=== PATIENT | female | born 1965 | race Caucasian/White ===

== ENCOUNTER → 2017-10-27 13:30 | Outpatient (CLI) | payer OTHER, SELFPAY ==
--- NOTE | 2017-10-27 13:35 | RAD_ITS ---
STUDY: X-RAY - UNILATERAL RIBS ( LEFT ) REASON FOR EXAM: Female, 52 years old. Left posterior rib pain following a fall. TECHNIQUE: 4 view(s) of the ribs. COMPARISON: None. FINDINGS: Normal visualized ribs without a demonstrated fracture. The visualized lung is clear and expanded. RAD/Ribs Uni Min 3V w/PA Chest IMPRESSION: Normal x-ray examination of the ribs. Electronically Signed: Juan Jose Ventura MD at 13:59 EST Tel [phone], Service support ,
--- NOTE | 2017-10-27 13:40 | RAD_ITS ---
STUDY: X-RAY CHEST REASON FOR EXAM: Female, 52 years old. Left posterior and pleuritic chest pain following a prior injury. TECHNIQUE: PA and lateral views of the chest. COMPARISON: None. FINDINGS: Hyperinflation. The lungs are clear. There is no demonstrated pleural abnormality. Normal size heart. Normal mediastinum and fadi. Normal visualized pulmonary arteries. Normal visualized aortic arch and descending thoracic aorta. Normal visualized thoracic spine. Normal visualized ribs, clavicles, and shoulders. There is no demonstrated abnormality of the visualized soft tissue structures of the upper abdomen. RAD/Chest PA and Lateral IMPRESSION: Normal x-ray examination of the chest. Electronically Signed: Juan Jose Ventura MD at 13:59 EST Tel [phone], Service support ,
== END ==
PROVIDERS: Family Provider Family Medicine; PCP Family Medicine; Visit Provider Family Medicine
DX: R07.1 Chest pain on breathing (principal); S20.212A Contusion of left front wall of thorax, initial encounter; X58.XXXA Exposure to other specified factors, initial encounter; Y93.9 Activity, unspecified; Y92.9 Unspecified place or not applicable; Y99.9 Unspecified external cause status
CPT/HCPCS: 71046; 71101

== ENCOUNTER → 2018-01-22 11:39 | Outpatient (CLI) | payer OTHER, SELFPAY ==
[2018-01-22 13:08] LABS: AST(SGOT) 16 U/L (15-37); Alanine Aminotransfer ALT/SGPT 18 U/L (13-56); Albumin, Serum 3.7 g/dL (3.2-5.0); Alkaline Phosphatase 66 U/L (45-117); Bilirubin, Direct 0.07 mg/dL (0.00-0.30); Globulin 3.7 g/dL (2.2-4.2); Lipase 174 U/L (73-393); Protein, Total 7.4 g/dL (6.4-8.2)
== END ==
PROVIDERS: Family Provider Family Medicine; PCP Family Medicine; Visit Provider Family Medicine
DX: R10.9 Unspecified abdominal pain (principal)
CPT/HCPCS: 36415; 80076; 83690

== ENCOUNTER → 2018-01-30 07:44 | Outpatient (CLI) | payer OTHER, SELFPAY ==
--- NOTE | 2018-01-30 07:46 | US_ITS ---
STUDY: ABDOMINAL ULTRASOUND REASON FOR EXAM: Female, 52 years old. Abdominal fullness. Chronic abdominal pain. TECHNIQUE: Transabdominal ultrasound was performed with real-time and static loving scale imaging. TECHNICAL QUALITY: Adequate. COMPARISON: None. FINDINGS: Liver: The liver measures 11.7 cm. There is normal echogenicity of the liver. The bile ducts are within normal limits. There is hepatic color flow. The direction of portal flow is hepatopetal. There is no demonstrated mass lesion. Portal vein measurement: Gallbladder: Normal distended gallbladder. The gallbladder wall measures 1.5 mm. There is a negative sonographic Waddell's sign. There is no pericholecystic fluid. There are no gallstones. Common Bile Duct (C.B.D.): The common bile duct measures 1.4 mm. Pancreas: Normal size of the head, body and tail of the pancreas. There is normal echogenicity of the pancreas. There is no demonstrated pancreatic mass or cyst. Spleen: Spleen is incompletely visualized due to bowel gas high position below the diaphragm. Right Kidney: Normal size of the right kidney. The right kidney measures 9.4 cm. Normal renal cortex. The right cortex measures 1.2 cm. There is no demonstrated renal mass or cyst. There is no right hydronephrosis. Left Kidney: Normal size of the left kidney. The left kidney measures 9.4 cm. Normal renal cortex. The left cortex measures 1.2 cm. There is no demonstrated renal mass or cyst. There is no left hydronephrosis. Aorta: Abdominal aorta was not imaged. I.V.C.: The IVC is patent. There is no ascites. US/Gallbladder IMPRESSION: 1. Limited visualization of the spleen. 2. Otherwise normal abdominal ultrasound. Electronically Signed: Daniel Marcelo DO at 18:50 EDT Tel [phone], Service support ,
--- NOTE | 2018-01-30 07:47 | US_ITS ---
STUDY: ABDOMINAL ULTRASOUND REASON FOR EXAM: Female, 52 years old. Abdominal fullness. Chronic abdominal pain. TECHNIQUE: Transabdominal ultrasound was performed with real-time and static loving scale imaging. TECHNICAL QUALITY: Adequate. COMPARISON: None. FINDINGS: Liver: The liver measures 11.7 cm. There is normal echogenicity of the liver. The bile ducts are within normal limits. There is hepatic color flow. The direction of portal flow is hepatopetal. There is no demonstrated mass lesion. Portal vein measurement: Gallbladder: Normal distended gallbladder. The gallbladder wall measures 1.5 mm. There is a negative sonographic Waddell's sign. There is no pericholecystic fluid. There are no gallstones. Common Bile Duct (C.B.D.): The common bile duct measures 1.4 mm. Pancreas: Normal size of the head, body and tail of the pancreas. There is normal echogenicity of the pancreas. There is no demonstrated pancreatic mass or cyst. Spleen: Spleen is incompletely visualized due to bowel gas high position below the diaphragm. Right Kidney: Normal size of the right kidney. The right kidney measures 9.4 cm. Normal renal cortex. The right cortex measures 1.2 cm. There is no demonstrated renal mass or cyst. There is no right hydronephrosis. Left Kidney: Normal size of the left kidney. The left kidney measures 9.4 cm. Normal renal cortex. The left cortex measures 1.2 cm. There is no demonstrated renal mass or cyst. There is no left hydronephrosis. Aorta: Abdominal aorta was not imaged. I.V.C.: The IVC is patent. There is no ascites. US/Abdomen Limited IMPRESSION: 1. Limited visualization of the spleen. 2. Otherwise normal abdominal ultrasound. Electronically Signed: Daniel Marcelo DO at 18:50 EDT Tel [phone], Service support ,
== END ==
PROVIDERS: Family Provider Family Medicine; PCP Family Medicine; Visit Provider Family Medicine
DX: R10.12 Left upper quadrant pain (principal); G89.29 Other chronic pain
CPT/HCPCS: 76705

== ENCOUNTER → 2018-06-27 07:43 | Outpatient (CLI) | payer OTHER, SELFPAY ==
[2018-06-27 10:58] LABS: Cholesterol 184 mg/dL (200); Glucose 88 mg/dL (74-106); High Density Lipoprotein 64 mg/dL; Triglycerides 69 mg/dL; Very Low Density Lipoprotein 14 mg/dL (5-40)
== END ==
PROVIDERS: Family Provider Family Medicine; PCP Family Medicine; Referring Provider Family Medicine; Visit Provider Family Medicine
DX: E11.9 Type 2 diabetes mellitus without complications (principal); Z13.220 Encounter for screening for lipoid disorders
CPT/HCPCS: 36415; 80061; 82947

== ENCOUNTER → 2018-09-07 15:39 | Outpatient (CLI) | payer OTHER, SELFPAY ==
--- NOTE | 2018-09-07 15:44 | RAD_ITS ---
HISTORY: NO KNOWN INJURY. PAIN IN LOWER BACK RADIATING DOWN INTO RIGHT HIP AND LEG. COMPARISON: None FINDINGS: XR Spine Lumbar 5 views Generalized bony demineralization. Lumbar vertebra show normal height and alignment. No fracture or acute disease. Lumbar disc space heights are preserved. The posterior elements appear intact. No spondylolisthesis. SI joints are preserved. RAD/L/S Spine Min 4 Views IMPRESSION: 1. Osteopenia. Otherwise negative exam. No fracture or acute disease. 2. As correlated with the history of lumbar radiculopathy, consider MR correlation. at 0357 Reported and signed by: Bret Ly MD Electronically Signed: Bret Ly, at 3:56 EST Tel , Service support ,
== END ==
PROVIDERS: Family Provider Family Medicine; PCP Family Medicine; Referring Provider Family Medicine; Visit Provider Family Medicine
DX: M54.31 Sciatica, right side (principal)
CPT/HCPCS: 72110

== ENCOUNTER 2019-04-05 16:07 | Emergency (ER) | payer OTHER, SELFPAY ==
[2019-04-05 16:08] VITALS: BP 142/69; PULSE 90; RESP 15; TEMP 37.2; O2SAT 95; BMI 22.2
--- NOTE | 2019-04-05 16:15 | EKG12_ITS ---
Test Reason : Blood Pressure : / mmHG Vent. Rate : 082 BPM Atrial Rate : 082 BPM P-R Int : 148 ms QRS Dur : 072 ms QT Int : 384 ms P-R-T Axes : 075 057 053 degrees QTc Int : 448 ms Normal sinus rhythm Normal ECG Confirmed by JANET CHILDS, TOYA ([id number]), news copy editor LENORA BRANTLEY ([id number]) on 04/08/2019 1:52:26 PM Referred By: MARISOL Confirmed By:MARCOS GONZALES MD
--- NOTE | 2019-04-05 16:16 | ED.DCSUM_ITS ---
- ER Visit Summary Date of Service: 04/05/19 Chief Complaint: Questionable allergic reaction History of Present Illness: The patient is a 53 F who possibly had an allergic reaction. She was at work and her feet and hands were itchy. Coworkers noticed a rash on her neck. She then had a syncopal episode. She has had syncope previously. Denies any chest pain, shortness of breath or tongue swelling. She took 2 Claritin and is feeling better. Denies any headache. No fevers or any other recent illnesses. She had a ham and cheese sandwich from [employer] today but has had this before. No other new irritants noted. Physical Examination: Vital signs reviewed. HEENT exam unremarkable. Heart is regular rate and rhythm without murmurs. Lungs are clear to auscultation. Abdomen is soft and nontender. Extremities reveal no edema. Skin exam normal. Neurologic exam normal. Test Results: Laboratory studies are unremarkable except for potassium 3.3 Emergency Department Course and Treatment: The patient was given IV fluids and feels much better. It is unclear what caused her allergic reaction. It could have been something from the sandwich that she ate. She will avoid that from now on. She would do Benadryl at home. She would like to go home. She will follow-up with her PCP Treatment Plan: [] Disposition: Discharge Impression: Syncope, allergic reaction This note was generated with [employer]ation software. It may contain incorrect words, spelling, and punctuation that were not noted in review of the chart prior to signing ED Disposition - Plan for ED Patient: Referrals: Kyree Herron MD [Primary Care Provider] -
[2019-04-05 16:38] LABS: Absolute Lymphocyte Count 1.68 X10^3/uL (0.83-4.51); Absolute Neutrophil Count 2.3 X10^3/uL (2.0-7.7); Eosinophil# 0.04 X10^3/uL; Eosinophils% 0.9 % (0-5); Hemoglobin 12.2 g/dL (12.0-15.0); Lymphocyte # 1.68 X10^3/ul (4.0); Lymphocyte % 36.2 % (19-41); Mean Corpuscular Hgb 29.6 pg (27.0-32.0); Mean Corpuscular Volume 89.8 fL (81-99); Mean Platelet Vol. 8.6 fl (6.2-12.0); Monocyte# 0.64 X10^3/uL; Monocyte% 13.8 % (0-10); NRBC Flagged by Analyzer 0 % (0-5); Neutrophil # 2.27 X10^3/uL (2.7-7.7); Neutrophil % 48.9 % (47-70); Platelet Count 272 K/mm3 (150-450); RBC Distribution Width CV 12.9 % (11.6-14.6); RBC Distribution Width SD 42.8 fl (35.1-43.9); Red Blood Count 4.12 M/mm3 (4.2-5.4); White Blood Count 4.6 K/mm3 (4.4-11.0)
[2019-04-05 16:53] LABS: Anion Gap 3 (5-15); BUN 18 mg/dL (7-18); BUN/Creat Ratio 17.3 RATIO (10-20); Calcium,Total 8.8 mg/dL (8.5-10.1); Chloride 106 mmol/L (98-107); Creatinine, Serum 1.04 mg/dL (0.55-1.02); EST Glomerular Filtration Rate 59 mL/min (>60); Est Glom Filt Rate - Afr Amer 71 mL/min (>60); Estimated Creatinine Clearance 44.42 ml/min; Glucose 104 mg/dL (74-106); Potassium 3.3 mmol/L (3.5-5.1); Sodium Level 138 mmol/L (136-145)
--- NOTE | 2019-04-05 17:28 | ED.DEP ---
ED Disposition - Plan for ED Patient: Disposition: Home or Assisted Living Instructions: ALLERGIC REACTION, Other (General) Referrals: Kyree Herron MD [Primary Care Provider] -
[2019-04-05 17:36] VITALS: BP 104/66; PULSE 20; RESP 17; O2SAT 94
== END 2019-04-05 17:39 | disposition home or self-care (01) ==
PROVIDERS: Emergency Provider Emergency Medicine; Family Provider Family Medicine; PCP Family Medicine
DX: T78.40XA Allergy, unspecified, initial encounter (principal); X58.XXXA Exposure to other specified factors, initial encounter; R55 Syncope and collapse; Z79.899 Other long term (current) drug therapy
CPT/HCPCS: 80048; 85025; 93005; 99285; A4216

== ENCOUNTER → 2019-10-14 17:28 | Outpatient (CLI) | payer OTHER, SELFPAY ==
[2019-10-14 17:58] LABS: Absolute Lymphocyte Count 1.93 X10^3/uL (0.83-4.51); Absolute Neutrophil Count 1.9 X10^3/uL (2.0-7.7); Eosinophil# 0.09 X10^3/uL; Eosinophils% 1.9 % (0-5); Hematocrit 35.3 % (37-47); Hemoglobin 11.2 g/dL (12.0-15.0); Lymphocyte # 1.93 X10^3/ul (4.0); Lymphocyte % 40.9 % (19-41); Mean Corp Hgb Conc 31.7 g/dL (32-36); Mean Corpuscular Hgb 28.8 pg (27.0-32.0); Mean Corpuscular Volume 90.7 fL (81-99); Mean Platelet Vol. 9.6 fl (6.2-12.0); Monocyte# 0.76 X10^3/uL; Monocyte% 16.1 % (0-10); NRBC Flagged by Analyzer 0 % (0-5); Neutrophil # 1.94 X10^3/uL (2.7-7.7); Neutrophil % 41.1 % (47-70); Platelet Count 341 K/mm3 (150-450); RBC Distribution Width SD 46.2 fl (35.1-43.9); Red Blood Count 3.89 M/mm3 (4.2-5.4); White Blood Count 4.7 K/mm3 (4.4-11.0)
[2019-10-14 18:05] LABS: Erythrocyte Sedimentation Rate 31 mm/hr (0-30)
[2019-10-14 18:28] LABS: AST(SGOT) 21 U/L (15-37); Alanine Aminotransfer ALT/SGPT 32 U/L (13-56); Albumin, Serum 3.8 g/dL (3.2-5.0); Alkaline Phosphatase 75 U/L (45-117); Anion Gap 5 (5-15); BUN 23 mg/dL (7-18); BUN/Creat Ratio 20.4 RATIO (10-20); CPK Total, Creatine Kinase 69 U/L (26-192); CRP < 2.90 mg/L (0.0-3.0); Calcium,Total 8.7 mg/dL (8.5-10.1); Chloride 107 mmol/L (98-107); Creatinine, Serum 1.13 mg/dL (0.55-1.02); EST Glomerular Filtration Rate 53 mL/min (>60); Est Glom Filt Rate - Afr Amer 64 mL/min (>60); Globulin 3.7 g/dL (2.2-4.2); Glucose 97 mg/dL (74-106); Potassium 3.4 mmol/L (3.5-5.1); Protein, Total 7.5 g/dL (6.4-8.2); Rheumatoid Factor < 10.0 IU/mL (<15); Sodium Level 141 mmol/L (136-145); T4 Free Direct 0.88 ng/dL (0.76-1.46)
[2019-10-14 18:38] LABS: Vitamin D,25 Hydroxy 18.8 ng/mL (29.95-100.01)
[2019-10-17 12:58] LABS: Ferritin 18 ng/mL (8-252); Iron 68 ug/dL (50-170)
[2019-10-17 16:03] LABS: CCP IgG Antibodies 9 units (0-19)
== END ==
PROVIDERS: PCP Family Medicine; Referring Provider Family Medicine; Visit Provider Family Medicine
DX: M06.4 Inflammatory polyarthropathy (principal); M60.9 Myositis, unspecified; D64.9 Anemia, unspecified; R55 Syncope and collapse; R53.83 Other fatigue; M62.81 Muscle weakness (generalized)
CPT/HCPCS: 36415; 80053; 82306; 82550; 82728; 83540; 84439; 84443; 85025; 85652; 86038; 86140; 86200; 86431

== ENCOUNTER → 2019-10-22 17:19 | Outpatient (CLI) | payer OTHER, SELFPAY ==
[2019-10-22 14:58] VITALS: BMI 22.2
[2019-10-25 11:18] LABS: HPV APTIMA, High Risk Negative (Negative)
== END ==
PROVIDERS: PCP Family Medicine; Referring Provider Obstetrics & Gynecology; Visit Provider Obstetrics & Gynecology
DX: Z12.4 Encounter for screening for malignant neoplasm of cervix (principal)
CPT/HCPCS: 87624; 88175; G0145

== ENCOUNTER 2021-09-22 12:29 | Outpatient (CLI) | payer OTHER, SELFPAY ==
--- NOTE | 2021-09-22 11:40 | RAD_ITS ---
STUDY: X-RAY CHEST REASON FOR EXAM: Female, 56 years old. Dyspnea on exertion. TECHNIQUE: AP and lateral views of the chest. COMPARISON: 10/27/2017. FINDINGS: The lungs are clear and expanded. There is no demonstrated pleural abnormality. Normal size heart. Normal mediastinum and fadi. Normal visualized pulmonary arteries. Normal visualized aortic arch and descending thoracic aorta. Normal visualized thoracic spine. Normal visualized ribs, clavicles, and shoulders. There is no demonstrated abnormality of the visualized soft tissue structures of the upper abdomen. RAD/Chest PA and Lateral IMPRESSION: No interval change. Normal chest. Electronically Signed: Luisito Leung MD at 9:13 EST , Service support ,
--- NOTE | 2021-09-22 12:33 | ECHOD_ITS ---
Reason For Study: Dyspnea on Exertion Procedure This was a 2D Doppler, Color Flow transthoracic echocardiogram. Exam performed in department. Left Ventricle Normal LV size. Left ventricular systolic function is normal. The estimated ejection fraction is 65 %. No evidence for diastolic dysfunction. No regional wall motion abnormalities noted. Right Ventricle Normal RV size. Normal systolic function. Atria Normal left atrium. Normal right atrium. No doppler evidence for ASD. Mitral Valve There is no mitral annular calcification. Normal mitral valve. Mild-Moderate (1-2+) mitral valve insufficiency. Tricuspid Valve Normal tricuspid valve. Mild tricuspid valve insufficiency. Right ventricular systolic pressure estimated to be 23 mmHg. Aortic Valve Trisinus/trileaflet aortic valve. Normal aortic valve. Pulmonic Valve The pulmonic valve is not well visualized. Great Vessels Normal sized aortic root. Pericardium/Pleural No pericardial effusion. MMode/2D Measurements & Calculations LVIDd: 3.7 cm IVSd: 0.71 cm Ao root diam: 2.7 cm LVIDs: 1.8 cm LVPWd: 0.69 cm LA dimension: 3.0 cm FS: 52.3 % LAV(MOD-bp): 32.1 ml LA A4 area: 12.5 cm2 RA A4 area: 8.5 cm2 LAV(MOD-bp) Indexed: 21.8 ml/m2 LAV(MOD-sp2): 30.4 ml LAV(MOD-sp4): 30.3 ml Time Measurements MV dec time: 0.15 sec Doppler Measurements & Calculations MV E max julio c: 116.5 cm/sec Lat Peak E' Julio C: 12.1 cm/sec Med Peak E' Julio C: 11.1 cm/sec MV A max julio c: 103.5 cm/sec E/E' lat: 9.7 E/E' med: 10.5 MV E/A: 1.1 MV V2 max: 136.8 cm/sec MV P1/2t max julio c: 137.7 cm/sec Ao V2 max: 138.0 cm/sec MV max P.5 mmHg MV P1/2t: 61.9 msec Ao max P.6 mmHg MV V2 mean: 77.6 cm/sec MV dec slope: 651.8 cm/sec2 MV mean P.8 mmHg MVA(P1/2t): 3.6 cm2 MV V2 VTI: 31.3 cm LV V1 max: 86.8 cm/sec MR max julio c: 572.6 cm/sec PA V2 max: 102.1 cm/sec LV V1 max P.0 mmHg MR max P.1 mmHg MR mean julio c: 434.4 cm/sec MR mean P.2 mmHg MR VTI: 199.2 cm TR max julio c: 225.8 cm/sec TR max P.4 mmHg ECHO/Echo Complete Interpretation Summary Left ventricular systolic function is normal. The estimated ejection fraction is 65 %. Mild-Moderate (1-2+) mitral valve insufficiency. Mild tricuspid valve insufficiency. Right ventricular systolic pressure estimated to be 23 mmHg. No evidence for diastolic dysfunction. Ordering Physician: Kyree Herron Referring Physician: Kyree Herron Performed By: Tereso Mercado RCS
== END 2021-09-22 23:59 | disposition short-term general hospital (02) ==
PROVIDERS: PCP Family Medicine; Referring Provider Family Medicine; Visit Provider Family Medicine
DX: R06.00 Dyspnea, unspecified (principal)
CPT/HCPCS: 71046; 93306

== ENCOUNTER 2021-12-22 12:14 | Outpatient (CLI) | payer OTHER, SELFPAY ==
[2021-12-22 14:20] LABS: CRP, High Sensitivity Cardiac 1.96 mg/L; Thyroid Stim Hormone (TSH) 1.97 uIU/mL (0.358-3.74)
== END 2021-12-22 23:59 | disposition home or self-care (01) ==
LOC: LAB 12:14
PROVIDERS: PCP Family Medicine; Visit Provider Internal Medicine Cardiovascular Disease
DX: R00.2 Palpitations (principal); R06.02 Shortness of breath
CPT/HCPCS: 36415; 84443; 86141

== ENCOUNTER → 2022-01-19 | Outpatient (CLI) | payer OTHER, SELFPAY ==
--- NOTE | 2022-01-19 13:27 | STE_ITS ---
Reason For Study: Dyspnea Stress Results Protocol: Andrei Protocol Maximum Predicted HR: 163 bpm Target HR: 139 bpm % Maximum Predicted HR: 96 % DurationHeart Rate Stage (mm:ss) (bpm) BP Comment Baseline 81 110/76No Chest Pain Andrei Protocol Stage I 3:00 125 114/72Mild Chest Heaviness Andrei Protocol Stage II 3:00 134 134/60Mild Chest Heaviness Andrei Protocol Stage III 3:00 157 140/58Mild Chest Heaviness; Mild Dyspnea Recovery 103 114/64No Chest Pain; No Dyspnea Stress Duration: 9:00 mm:ss Maximum Stress HR: 157 bpm METS: 10 Baseline Echocardiogram Findings Stress Echo Wall motion Data Resting WM Intermediate WM Stress WM ECHO/Stress Test Echo w/o Contrast Interpretation Summary Exercise stress echocardiogram. 56-year-old lady with a history of palpitations and chest pain. Stress protocol: Resting KG demonstrates normal sinus rhythm with a rate of 83 bpm resting blood pressure is 110/76 mmHg. The patient exercised according to the regular Andrei protocol for total d uration of 9 minutes. Patient completed stage III of the Andrei protocol. The maximum heart rate attai enma was 157 bpm which was 99% of max impacted heart rate the maximum workload was 10.1 metabolic equi valents. At rest there were no ST or T wave changes noted to suggest ischemia at peak exercise u psloping ST changes were noted with did not meet the criteria for ischemia. The peak blood pressure was 150/58 mmHg with a rate-pressure product of 21,980 and a good blood pressure response to exercis e. Patient experienced mild chest heaviness of unclear significance. Stress echocardiogram. The resting echocardiogram demonstrated preserved left v entricular systolic function estimated to be 60% with no wall motion abnormalities noted. At peak e xercise there was thickening of all ventricular mccall and reduction of left ventricular cavity wi th augmentation of the ejection fraction to approximately 70%. No new wall motion abnormalities we re noted to suggest ischemia. Conclusion: Exercise stress echocardiogram with no EKG criteria for ischemia at high worklo ad. Normal resting and stress echocardiographic images. Excellent functional capacity. Chest discomfort of unclear significance. Mild Ordering Physician: Oscar Schneider Referring Physician: Oscar Schneider Performed By: Glenda Groves, SULAIMAN, RVT
== END | disposition home or self-care (01) ==
LOC: CVS 13:26
PROVIDERS: PCP Family Medicine; Referring Provider Internal Medicine Cardiovascular Disease; Visit Provider Internal Medicine Cardiovascular Disease
DX: R06.00 Dyspnea, unspecified (principal); R06.02 Shortness of breath
CPT/HCPCS: 93017; 93350

== ENCOUNTER → 2022-03-30 | Outpatient (CLI) | payer OTHER, SELFPAY ==
--- NOTE | 2022-03-30 11:32 | US_ITS ---
STUDY: SUPERFICIAL ULTRASOUND - RIGHT FLANK. REASON FOR EXAM: Female, 56 years old. Lump -- AREA OF PALP LUMP SUBCUTANEOUS RT FLANK TECHNIQUE: A superficial ultrasound was performed with real-time and static loving-scale imaging. COMPARISON: None. FINDINGS: Targeted ultrasound of the right flank at the level of the palpable abnormality was performed. No sonographic abnormality is seen. US/Abdomen Limited IMPRESSION: No sonographic abnormality is seen. Electronically Signed: Juan Jose Ventura MD at 14:23 EDT ,
== END | disposition home or self-care (01) ==
LOC: US 11:29
PROVIDERS: PCP Family Medicine; Visit Provider Family Medicine
DX: R19.00 Intra-abdominal and pelvic swelling, mass and lump, unspecified site (principal)
CPT/HCPCS: 76705

== ENCOUNTER → 2022-09-26 | Outpatient (CLI) | payer OTHER, SELFPAY ==
[2022-09-26 15:33] LABS: Free T3 2.4 pg/mL (2.18-3.98); T4 Free Direct 0.76 ng/dL (0.76-1.46); Thyroid Stim Hormone (TSH) 1.67 uIU/mL (0.358-3.74)
== END | disposition home or self-care (01) ==
LOC: MTLAB 11:27
PROVIDERS: PCP Family Medicine; Referring Provider Family Medicine; Visit Provider Family Medicine
DX: E03.9 Hypothyroidism, unspecified (principal)
CPT/HCPCS: 36415; 84439; 84443; 84481

== ENCOUNTER 2022-09-27 12:00 | Outpatient (RCR) | payer OTHER, SELFPAY ==
--- NOTE | 2022-09-19 15:43 | HP.PTEVAL ---
Patient's Visit Information JUAN R LEE is a 57 year old F referred to Physical Therapy by Dr. Minoo Goodman MD with a diagnosis of CERVICAL MYELOPATHY AND RADICULOPATHY. Date of Evaluation: 09/19/22 Physical Therapist: Keyonna Alvarez, PT, Cert MDT - Visit Plan Frequency: 2x /Week Duration: 2-4 Weeks Plan: POSTURE CORRECTION/STRENGTHENING, INSTRUCTION IN APPROPRIATE BODY MECHANICS AND ACTIVITY MODIFICATIONS. LILI UE ROM, STRETCHING AND STRENGTHENING. GENTLE CERVICAL ROM AND STRENGTHENING. HEP INSTRUCTION. 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 HAS BEEN OFF WORK SINCE SURGERY 06/20/22. CURRENTLY TENTATIVE RTW DATE IS 09/26/22 BUT NEEDS TO SEE SURGEON AND HOPING TO SEE SURGEON IN HIS NEW OFFICE IN THE NEXT WEEK OR TWO. PT ORDER WAS WRITTEN 07/22/22 AT LAST SURGICAL FOLLOW UP AND STATES SHE WAS TOLD TO START PT TOWARD END OF AUG BUT COULDN'T DUE TO RECENT HOSPITALIZATION FOR TRANSVERSE MYELITIS WHICH CAUSED NUMBNESS FROM MID TORSO DOWN. STATES SHE IS STILL NUMB AND TINGLY BUT IMPROVING. Disability: NO. Present symptoms: INTERMITTENT JOLTS OF NECK PAIN WITH SHLD MVMTS. INFREQUENT. POSTERIOR NECK AND SHLD TIGHTNESS. STILL HAVING LILI UE NUMBNESS, TINGLING AND WEAKNESS SIMILAR TO BEFORE SURGERY. HEADACHES. Present since: NECK SX'S THAT LEAD TO SURGERY STARTED > 5 YEARS AGO. Pain Scale: Worst - 4/10 Least - 0/10 (MILD HEAD, NECK AND SHLD PAIN/PRESSURE). Currently: 2-3/10. Commenced as a result of: NO APPARENT REASON. Worse: NOT SURE. Better: TYLONOL. Disturbed sleep: NO. Previous history/Previous treatment: ACDF C5-6 06/[address] MINOO GOODMAN (CURRENTLY MOVING OFFICE LOCATION). STATES SURGERY WAS RECOMMENDED ABOUT 5 YEARS AGO AND TRIED JUST A FEW PT SESSIONS BUT THEY CAUSED HEADACHE SO DID NOT CONTINUE. Dizziness: NO. Tinnitis: NO. Nausea: NO. Shortness of Breath: YES (SINCE COVID 2019 AND AGAIN COVID JANUARY 2022). Difficulty Swollowing: YES - FEELS LIKE I HAVE A LUMP IN MY THROAT AND I HAVE TO SWOLLOW HARD. PATIENT STATES DOCTORS ARE AWARE AND ADDRESSED IT WITH HER WHEN HOSPITALIZED FOR TRANSVERSE MYELITIS. Gait: PATIENT STATES SHE HASN'T HAD ANY FALLS BUT FEELS LIKE SHE WALKS LIKE A PENGUIN AND LIKE SHE IS ON A HORSE BECAUSE SHE HAS TIGHT BANDING FEELINGS IN HER LEGS FROM THE TRANSVERSE MYELITIS STILL GOING ON ITS BETTER THOUGH. NOT USING ANY ASSISTIVE DEVICES. WALKING DOES NOT FEEL BACK TO NORMAL. WALKING FELT NORMAL ABOUT 5 WEEKS AGO. WOKE UP ABOUT 5 WEEKS AGO WITH IT HITTING SUDDENLTY. Accidents: FELL OUT OF A GARAGE LOFT 10-12 FEET ONTO CONCRETE ABOUT 6 YEARS AGO AND NECK PROBLEMS HAD STARTED PRIOR TO THE FALL. Unexplained weight loss: NO. Imaging: LAST NECK X-RAYS WERE WITH THE SURGEON 07/22/22 AND LOOKED GOOD PER PATIENT REPORT. PMH/Recent major surgery: RECENT HOSPITALIZATION X 4 DAYS WITH D/C HOME 08/25/22 FOR THE TRANSVERSE MYELITIS. PATIENT REPORTS SHE WAS TOLD THAT HER LE SX'S DID NOT HAVE ANYTHING TO DO WITH HER NECK. H/O SYNCOPE - LAST EPISODE WAS 3-4 YEARS AGO. STATES SHE HAD A FOLLOW UP WITH HER NEUROLOGIST DR. KARIN HERNANDEZ WITH [facility] TODAY FOR HER RECENT TRANSVERSE MYELITIS DX AND THEY RULED OUT MS BUT WILL MONITOR. PATIENT REPORTS DR. HERNANDEZ TOLD HER HE DOES NOT HAVE ANY RESTRICTIONS FOR HER AND SHE CAN DRIVE. STATES HE KNOWS SHE IS HAVING PT EVAL TODAY. - Objective Sitting Posture/Standing Posture: POOR. FH. RS'S. NO TORTICOLLIS. Active Correction of posture: NE. ONLY ABLE TO PARTIALLY CORRECT. Other Observations: INDEP GAIT INTO PT WITH DECREASED CADANCE AND SHORT LILI STRIDE LENGTH WITH DECREASED HEEL STRIKE AND TOE OFF PHASES OF GAIT. Sensory deficit: LILI UE LIGHT TOUCH SENSATION GROSSLY INTACT AND SYMMETRICAL DESPITE REPORTS OF NUMBNESS AND TINGLING. ROM deficit: LILI UE ROM WFL. DENIES PAIN WITH TESTING. 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 LILI UE STRENGTH GROSSLY 4-/5. Dural Signs: POSITIVE LILI UE'S. Cervical Mvmt Loss: Flex: MIN - PULLING L POST NECK/SHLD. Pro: NIL. Ext: MOD. Ret: DARRYL. RSB: MIN. LSB: MIN. R Rot: MOD. L Rot: MIN - FEELS PULLING LEFT POST NECK. PATIENT DENIES INCREASED PAIN WITH CERVICAL ROM TESTING ALL PLANES. Postural strength: POOR - Balance/Special Test Scores Oswestry Neck Score: 8 - Goals Goal 1:: DECREASE C/O HEAD AND NECK PAIN Goal Time Frame: 4-6 Weeks Goal 2:: IMPROVE ADL AND WORK FUNCTION Goal Time Frame: 4-6 Weeks Goal 3:: INSTRUCT IN PROPHYLAXIS Goal Time Frame: 4-6 Weeks - Anticipated Interventions Patient/Client Instruction: Educate patient on: Condition, Plan of Care, Risk Factors For the Purpose of:: To improve self management Therapeutic Exercise to Include: Strength training, Body mechanics, Postural training, Flexibilty training, Neuromotor development, Scapular Strength/Stabilization For the Purpose of:: To decrease pain, To increase ROM, To improve muscle performance and motor function, To increase tolerance to activity/condition/position, To improve ability of physical actions for home/community/work/leisure Cryotherapy (ice pack, ice massage): Yes Thermo therapy (hot pack): Yes For the Purpose of:: To decrease pain, To improve nutrient delivery to tissue Thank you for the opportunity to evaluate your patient. For Medicare and Medicare HMO plans, please review the plan of care and approve it. It will need to be FAXED BACK to us at [phone] for Medicare purposes. For Medicare only, by signing this I certify the plan of care. Please let me know if there are questions or concerns regarding this plan of care. Physician Signature: Date:
--- NOTE | 2022-11-30 14:24 | HP.PTDCNRP_ITS ---
JUAN R LEE was seen in my office for initial evaluation on 09/19/22. The following Plan of Care was established for this patient: Initial Frequency: 2x /Week Initial Duration: 2-4 Weeks Patient/Client Instruction: Educate patient on: Condition, Plan of Care, Risk Factors For the Purpose of:: To improve self management Therapeutic Exercise to Include: Strength training, Body mechanics, Postural training, Flexibilty training, Neuromotor development, Scapular Strength/Stabilization For the Purpose of:: To decrease pain, To increase ROM, To improve muscle performance and motor function, To increase tolerance to activity/condi tion/position, To improve ability of physical actions for home/community/work/leisure Cryotherapy (ice pack, ice massage): Yes Thermo therapy (hot pack): Yes For the Purpose of:: To decrease pain, To improve nutrient delivery to tissue This patient was last seen in our office . Pertinent comments regarding their Physical therapy will appear below: This patient has not returned to Physical Therapy and is appropriate to return to MD for further follow-up as needed. She called and stated that she has other health concerns that need her attention at this time. At this point I will be discontinuing this patient from physical therapy. I would be happy to see this patient again in the future if found appropriate by the physician. Thank you! Keyonna Alvarez, PT, Cert MDT Balance/Gait/Functional tests - Balance/Special Test Scores Oswestry Neck Score: 8
== END 2022-09-27 19:00 | disposition home or self-care (01) ==
LOC: PT 12:00
DX: G95.9 Disease of spinal cord, unspecified (principal); M54.12 Radiculopathy, cervical region
CPT/HCPCS: 97110; 97162; 97530

== ENCOUNTER → 2022-09-27 | Outpatient (CLI) | payer OTHER, SELFPAY ==
--- NOTE | 2022-09-27 12:55 | US_ITS ---
STUDY: THYROID ULTRASOUND REASON FOR EXAM: Female, 57 years old. Cervical swelling. TECHNIQUE: Ultrasound evaluation of the thyroid was performed with real-time and static loving-scale imaging. COMPARISON: None. FINDINGS: RIGHT LOBE: The right lobe of the thyroid gland measures 4.4 cm x 1.6 cm x 1.2 cm. There is a homogeneous echotexture. There are no demonstrated solid, cystic or complex lesions. LEFT LOBE: The left lobe of the thyroid gland measures 3.5 cm x 1.2 cm x 0.7 cm. There is a homogeneous echotexture. There are no demonstrated solid, cystic or complex lesions. ISTHMUS: The isthmus measures 2 mm. The regional lymph nodes are normal. US/Thyroid IMPRESSION: Normal ultrasound examination of the thyroid. Electronically Signed: Juan Jose Ventura MD at 15:25 EST ,
== END | disposition home or self-care (01) ==
PROVIDERS: PCP Family Medicine; Referring Provider Family Medicine; Visit Provider Family Medicine
DX: E07.9 Disorder of thyroid, unspecified (principal)
CPT/HCPCS: 76536

== ENCOUNTER 2023-09-18 07:35 | Emergency (ER) | payer OTHER, SELFPAY ==
[2023-09-18 07:35] VITALS: PULSE 88; RESP 22; O2SAT 100
[2023-09-18 07:36] VITALS: PULSE 64; RESP 14; TEMP 36.5; O2SAT 100; BMI 28.5
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
[2023-09-18 07:46] VITALS: BP 136/68
--- NOTE | 2023-09-18 07:54 | EKG12_ITS ---
Test Reason : ABD PAIN Blood Pressure : / mmHG Vent. Rate : 087 BPM Atrial Rate : 087 BPM P-R Int : 148 ms QRS Dur : 066 ms QT Int : 372 ms P-R-T Axes : 063 042 043 degrees QTc Int : 447 ms Normal sinus rhythm Normal ECG Confirmed by GENEVA CHILDS, HARLEY ([id number]), video tape editor LENORA BRANTLEY ([id number]) on 09/19/2023 9:57:38 AM Referred By: GEORGI Confirmed By:HARLEY BEAN MD
--- NOTE | 2023-09-18 07:54 | CT_ITS ---
EXAM: CT ABDOMEN AND PELVIS WITHOUT INTRAVENOUS CONTRAST CLINICAL INDICATION: Left-sided abdominal pain since this morning. TECHNIQUE: Helically acquired images were obtained of the abdomen and pelvis without intravenous contrast. This CT exam was performed using one or more of the following dose reduction techniques: automated exposure control, adjustment of the mA and/or kV according to patient size, and/or use of iterative reconstruction technique. RADIATION DOSE: CTDIvol = 6.72 mGy, DLP = 328.92 mGy-cm COMPARISON: No relevant prior studies available. FINDINGS: LOWER THORAX: Unremarkable. Lung bases are clear. No cardiomegaly. No significant pericardial effusion. ABDOMEN: LIVER: Mild diffuse fatty infiltration of the liver. GALLBLADDER AND BILE DUCTS: Unremarkable. No calcified gallstones. No gallbladder distention or wall edema. No intra- or extrahepatic biliary ductal dilation. PANCREAS: Unremarkable. No focal cystic mass. SPLEEN: Unremarkable. Normal size without focal cystic or solid mass. ADRENALS: Unremarkable. No nodules. KIDNEYS AND URETERS: Mild left hydronephrosis and mild left hydroureter secondary to 3 mm partially obstructing stone in the near the left UVJ. No stones or hydronephrosis in the right kidney. Normal renal size and position. STOMACH AND BOWEL: Unremarkable. No stomach or bowel distention. No focal inflammatory change. PELVIS: APPENDIX: Normal. BLADDER: Unremarkable. REPRODUCTIVE: Unremarkable as visualized. No mass. ABDOMEN and PELVIS: INTRAPERITONEAL SPACE: Unremarkable. No ascites or other fluid collection. No free air. BONES/JOINTS: Unremarkable. No suspicious lytic or blastic abnormality. SOFT TISSUES: Unremarkable. No discrete abdominal or pelvic wall hernia. VASCULATURE: Unremarkable. Abdominal aorta is non-dilated. LYMPH NODES: Unremarkable. No enlarged lymph nodes. CT/Abdomen/Pelvis without Cont IMPRESSION: 1. Mild left hydronephrosis secondary to millimeter partially obstructing stone left distal ureter near the left UVJ. 2. Mild diffuse hepatic steatosis. Electronically Signed: Dionisio Vigil MD at 8:32 EST ,
[2023-09-18] MEDS: 0.9% Normal Saline (1000mL) 1,000 ML 1000 ML IV (07:59)
[2023-09-18] MEDS: Ondansetron 4 MG/2 ML Vial IV (08:00)
[2023-09-18] MEDS: Morphine 4 MG/ML Syringe IV (08:00)
[2023-09-18 08:10] LABS: Absolute Lymphocyte Count 1.94 X10^3/uL (0.83-4.51); Eosinophil# 0.13 X10^3/uL; Eosinophils% 2.2 % (0-5); Hematocrit 36.5 % (37-47); Hemoglobin 11.5 g/dL (12.0-15.0); Lymphocyte # 1.94 X10^3/ul (0.83-4.51); Lymphocyte % 33.2 % (19-41); Mean Corp Hgb Conc 31.5 g/dL (32-36); Mean Corpuscular Hgb 28.2 pg (27.0-32.0); Mean Corpuscular Volume 89.5 fL (81-99); Mean Platelet Vol. 9.1 fl (6.2-12.0); NRBC Flagged by Analyzer 0 % (0-5); Neutrophil # 3.04 X10^3/uL (2.7-7.7); Neutrophil % 52.1 % (47-70); Platelet Count 390 K/mm3 (150-450); RBC Distribution Width CV 14.2 % (11.6-14.6); RBC Distribution Width SD 45.9 fl (35.1-43.9); Red Blood Count 4.08 M/mm3 (4.2-5.4); White Blood Count 5.8 K/mm3 (4.4-11.0)
[2023-09-18 08:23] LABS: Anion Gap 5 (5-15); BUN 20 mg/dL (7-18); BUN/Creat Ratio 16.7 RATIO (10-20); Chloride 108 mmol/L (98-107); EST Glomerular Filtration Rate 49 mL/min (>60); Est Glom Filt Rate - Afr Amer 59 mL/min (>60); Estimated Creatinine Clearance 36.26 ml/min; Glucose 139 mg/dL (74-106); Potassium 3.5 mmol/L (3.5-5.1); Sodium Level 140 mmol/L (136-145)
[2023-09-18 09:05] LABS: Color, Urine Yellow (Yellow); Glucose, Dipstick Normal (Normal); Ketone-Dipstick Negative (Negative); Leukocyte Esterase-Dipstick 100 /ul (Negative); Nitrite-Dipstick Negative (Negative); Occult Blood-Urine 150 /ul (Negative); Protein-Dipstick 15 mg/dl (Negative); Urine Bilirubin Dipstick Negative (Negative); Urine Clarity Sl. Cloudy (Clear); Urine Urobilinogen Normal (Normal)
[2023-09-18 09:11] LABS: Bacteria 1+ /hpf (None Seen); Mucous, Urine 1+ /hpf (<or=2+); Red Blood Cells-Urine 10-25 SEEN /hpf (0-5); Squamous Epithelial Cells - UA 0-5 SEEN /hpf (5-10); White Blood Cells 10-25 SEEN /hpf (0-5)
[2023-09-18] MEDS: HYDROmorphone 1 MG/ML Syringe 0.5 MG IV ×2 (09:22→10:24)
[2023-09-18] MEDS: Ceftriaxone 1 GM/50 ML BAG IV (09:50)
[2023-09-18 10:31] VITALS: BP 134/76; PULSE 89; RESP 18; TEMP 36.4; O2SAT 99
--- NOTE | 2023-09-18 10:41 | ED.RN ---
pt throwing up dr. hay gives verbal for po [place]
[2023-09-18] MEDS: Ondansetron ODT 4 MG Tablet PO (10:43)
== END 2023-09-18 10:33 | disposition home or self-care (01) ==
PROVIDERS: Emergency Provider Emergency Medicine; PCP Nurse Practitioner Family; Visit Provider Emergency Medicine
DX: N13.6 Pyonephrosis (principal); K76.0 Fatty (change of) liver, not elsewhere classified
CPT/HCPCS: 74176; 80048; 81001; 85025; 87077; 87086; 87088; 87186; 93005; 96361; 96365; 96375; 96376; 99283; J7030; A4216; J2405

== ENCOUNTER → 2025-05-22 | Outpatient (CLI) | payer OTHER, SELFPAY ==
[2025-05-22 12:25] LABS: Hematocrit 37.0 % (37-47); Hemoglobin 11.6 g/dL (12.0-15.0); Immature Granulocytes Count 0.010 X10^3/uL (0.0-0.0); Mean Corp Hgb Conc 31.4 g/dL (32-36); Mean Corpuscular Volume 85.6 fL (81-99); Mean Platelet Vol. 9.6 fl (6.2-12.0); NRBC Flagged by Analyzer 0 % (0-5); Platelet Count 391 K/mm3 (150-450); RBC Distribution Width CV 16.1 % (11.6-14.6); RBC Distribution Width SD 51.1 fl (35.1-43.9); Red Blood Count 4.32 M/mm3 (4.2-5.4); White Blood Count 4.3 K/mm3 (4.4-11.0)
[2025-05-22 15:42] LABS: AST(SGOT) 21 U/L (<=31); Alanine Aminotransfer ALT/SGPT 18 U/L (<=34); Albumin, Serum 4.0 g/dL (3.4-4.8); Alkaline Phosphatase 98 U/L (35-104); Anion Gap 12 (5-15); BUN 15 mg/dL (4-19); BUN/Creat Ratio 13.1 RATIO (10-20); Calcium,Total 9.3 mg/dL (7.6-11.0); Carbon Dioxide 26.5 mmol/L (21.0-32.0); Chloride 103 mmol/L (98-108); Cholesterol 199 mg/dL (<=200); Globulin 3.1 g/dL (2.2-4.2); Glucose 87 mg/dL (70-99); Low Density Lipoprotein Calc. 130 mg/dL; Potassium 4.1 mmol/L (3.3-5.1); Triglycerides 95 mg/dL; Very Low Density Lipoprotein 19 mg/dL (5-40); Vitamin B12 916 pg/mL (180-914); Vitamin D,25 Hydroxy 57.1 ng/mL (30-100); cholesterol:hdl ratio screen 3.94
== END | disposition home or self-care (01) ==
LOC: BFHLAB 09:56
PROVIDERS: PCP Nurse Practitioner Family; Visit Provider Nurse Practitioner Family
DX: Z00.01 Encounter for general adult medical examination with abnormal findings (principal); E55.9 Vitamin D deficiency, unspecified; E53.8 Deficiency of other specified B group vitamins; R50.9 Fever, unspecified
CPT/HCPCS: 36415; 80053; 80061; 82306; 82607; 84439; 84443; 85025